=== PATIENT | female | born 1990 | race Caucasian/White ===

== ENCOUNTER 2017-03-29 08:07 | Emergency (ER) | payer BC, OTHER ==
[2017-03-29 08:11] VITALS: BP 138/94; PULSE 77; TEMP 98.3; BMI 28.3
--- NOTE | 2017-03-29 10:06 | PDOC ---
History of Present Illness - General Chief Complaint: Pain Stated Complaint: LT HAND SWELLING Time Seen by Provider: 03/29/17 08:14 History Source: Patient Exam Limitations: No Limitations - History of Present Illness Initial Comments: 03/29/17 11:14 Patient is a 26-year-old female, no significant medical history currently on no medication. Patient presents emergency department complaining of left hand pain , this morning had pain to the thenar area also noted a bruise to the second finger dorsal side lateral aspect. He denies trauma to area. Does sleep on her stomach with her arm bent. reports that fingers were swollen this am, which has now resolved. Past Medical History: Denies. Allergies: No known allergies Medications: None Family History: Non-contributory Social History: Denies smoking, alcohol use, or IVDU Review of Systems GENERAL/CONSTITUTIONAL: No fever or chills. No weakness. No weight change. HEAD, EYES, EARS, NOSE AND THROAT: No change in vision. No ear pain or discharge. No sore throat. CARDIOVASCULAR: No chest pain or shortness of breath. RESPIRATORY: No cough, wheezing, or hemoptysis. GASTROINTESTINAL: No nausea, vomiting, diarrhea or constipation. No rectal bleeding. GENITOURINARY: No dysuria, frequency, or change in urination. MUSCULOSKELETAL: No joint or muscle swelling or pain. No neck or back pain. Pain to the left thenar, bruise to dorsum of second lateral finger. SKIN: No rash , bruise as noted above. NEUROLOGIC: No headache, vertigo, loss of consciousness, or loss of sensation. Physical Exam: GENERAL: The patient is awake, alert, and fully oriented, in no acute distress. EYES: Pupils equal, round and reactive to light, extraocular movements intact, sclera anicteric, conjunctiva clear. ENT: Ears normal, nares patent, oropharynx clear without exudates. Moist mucous membranes. No uvula deviation NECK: Normal range of motion, supple without lymphadenopathy, JVD, or masses. LUNGS: Breath sounds equal, clear to auscultation bilaterally. No wheezes, and no crackles. HEART: Regular rate and rhythm, normal S1 and S2 without murmur, rub or gallop. ABDOMEN: Soft, nontender, normoactive bowel sounds. No guarding, no rebound. No masses. No bruising or abrasions MUSCULOSKELETAL: Normal range of motion, no edema. No clubbing or cyanosis. No cords, erythema, or tenderness. No CVA Tenderness with fist there is positive Tinnel and + Phalen test. There is erythema noted to the base of the first finger with swelling and bruising to the dorsum of the second lateral finger. NEUROLOGICAL: Cranial nerves II through XII grossly intact. Normal speech, normal gait. SKIN: Warm, Dry, normal turgor, no rashes or lesions noted. Past History - Past Medical History Allergies/Adverse Reactions: Allergies Allergy/AdvReac Type Severity Reaction Status Date / Time No Known Allergies Allergy Verified 03/29/17 08:11 Home Medications: Ambulatory Orders Ibuprofen [Motrin -] 600 mg PO TID #21 tablet 03/29/17 Other medical history: none - Suicide/Smoking/Psychosocial Hx Smoking History: Never smoked Hx Alcohol Use: No Drug/Substance Use Hx: No Substance Use Type: None *Physical Exam - Vital Signs Last Vital Signs Temp Pulse Resp BP Pulse Ox 98.3 F 77 20 138/94 100 03/29/17 08:07 03/29/17 08:07 03/29/17 08:07 03/29/17 08:07 03/29/17 08:07 ED Treatment Course - ADDITIONAL ORDERS Additional order review: Laboratory Results 03/29/17 03/29/17 08:37 08:37 Uric Acid 3.7 Urine HCG, Qual Negative - RADIOLOGY Radiology Studies Ordered: Category Date Time Status HAND- LEFT [RAD] Stat Radiology 03/29/17 08:35 Completed Medical Decision Making - Medical Decision Making 03/29/17 13:42 A/P: Patient with left hand pain and swelling, but because of erythema to base of the thumb will rule out gout and perform x-ray high suspicion for carpal tunnel. X-rays negative for acute fracture dislocation, uric is unremarkable. Laboratory Results - last 24 hr 03/29/17 03/29/17 08:37 08:37 Uric Acid 3.7 Urine HCG, Qual Negative Wrist splint placed on, patient discharged on anti-inflammatories, to follow-up with orthopedics. Wrist splint placed on. I discussed the physical exam findings, ancillary test results and final diagnoses with the patient. I answered all of the patient's questions. The patient was satisfied with the care received and felt comfortable with the discharge plan and treatment plan. The patient will call to arrange follow-up and will return to the Emergency Department with any new, persistent or worsening symptoms. *DC/Admit/Observation/Transfer Diagnosis at time of Disposition: Hand pain, left - Discharge Dispostion Disposition: HOME Condition at time of disposition: Good Admit: No - Prescriptions Prescriptions: Ibuprofen [Motrin -] 600 mg PO TID #21 tablet - Referrals Referrals: Nikunj Marroquin MD [Staff Physician] - - Patient Instructions Additional Instructions: 1. Please return to the emergency department with any redness, swelling, increased pain, or any other concerns. 2. Keep splint on. 3. Please follow up in the office of Dr. Marroquin within a week if pain persists. 4. No weightbearing 5. Ice and elevate when at rest. 6. Motrin for pain No repetitive movement or texting - Post Discharge Activity Forms/Work/School Notes: Back to Work
== END 2017-03-29 10:14 | disposition home or self-care (01) ==
LOC: JERFT 08:07
DX: M79.642 Pain in left hand (principal)
CPT/HCPCS: 36415; 73130-TC-LT; 84550; 84703; 99282-25